=== PATIENT | female | born 1990 | race Caucasian/White ===

== ENCOUNTER → 2016-10-06 | Outpatient (CLI) | payer BC ==
--- NOTE | 2016-10-06 09:21 | REP ---
Obstetric sonography: History: Supervision of for anatomy. Findings: Scanning through the gravid uterus demonstrates a viable single intrauterine gestation in a cephalic lie. motion is observed and heart rate is recorded at 135 beats per minute. An anterior grade 0 placenta is seen without evidence of previa. Amniotic fluid is subjectively normal. Closed cervical length is 5.1 cm. No extrauterine abnormality is observed. No anomaly is seen. The following anatomic structures are identified and felt to be sonographically unremarkable: cranium, choroid plexus, cavum, cerebellum and posterior fossa, face and profile, lungs, four-chamber heart with left and right ventricular outflow tract views, diaphragm, left-sided stomach, abdominal wall cord insertion, three-vessel umbilical cord, kidneys and bladder, spine, upper and lower extremities. Biometry chart: BPD 4.7 cm 20 weeks 1 day Head circumference 17.9 cm 20 weeks 2 days Abdominal circumference 16.2 cm 21 weeks 2 days Femur length 3.3 cm 20 weeks 2 days Humeral length 3.1 cm 20 weeks 2 days Cerebellar diameter 2.1 cm 20 weeks 0 days HC/AC ratio normal 1.1. Cephalic index normal 0.7. Estimated weight 375 grams, 0 pounds 13 ounces, 59th percentile for 20 weeks 3 days. Impression: Viable single intrauterine gestation at 20 weeks 3 days by today's composite sonographic criteria. [email or web address] by today's sonography February 20, 2017. No anomaly is seen. Signed by Bon Alves MD 10/06/2016 02:35 P
== END ==
LOC: M RAD 06:42
DX: Z34.80 Encounter for supervision of other normal pregnancy, unspecified trimester (principal)

== ENCOUNTER → 2016-12-21 | Outpatient (CLI) | payer BC ==
[2016-12-21 17:47] LABS: BASO % 0.3 % (0.0-1.0); EOS % 0.5 % (0.0-3.0); LYMPH # 1.6 K/mm3 (1.5-6.5); LYMPH % 19.3 % (24.0-44.0); MEAN CORPUSCULAR HGB CONC 32.1 g/dl (32.0-36.5); MEAN CORPUSCULAR VOLUME 87.4 fl (80.0-96.0); MONO # 0.4 K/mm3 (0.0-0.8); MONO % 4.4 % (0.0-5.0); NEUTROPHILS % 73.7 % (36.0-66.0); RED CELL DISTRIBUTION WIDTH 13.5 % (11.5-14.5); WHITE BLOOD COUNT 8.1 K/mm3 (4.0-10.0)
[2016-12-22 10:41] LABS: HBsAg Prenatal NEGATIVE (NEGATIVE)
== END ==
LOC: M LAB 15:15
PROVIDERS: ATTEND Nurse Practitioner Adult Health
DX: Z34.81 Encounter for supervision of other normal pregnancy, first trimester (principal)

== ENCOUNTER → 2016-12-21 | Outpatient (CLI) | payer BC | LOC: M LAB 15:12 | PROVIDERS: ATTEND Obstetrics & Gynecology Obstetrics | DX: Z34.82 Encounter for supervision of other normal pregnancy, second trimester (principal) ==

== ENCOUNTER → 2017-09-27 | Outpatient (CLI) | payer OTHER | LOC: M LRY 14:43 | DX: Z53.9 Procedure and treatment not carried out, unspecified reason (principal) ==

== ENCOUNTER 2019-01-21 16:40 | Emergency (ER) | payer OTHER ==
[~2019-01-21] VITALS: Ht 152.4 cm; Wt 55.8 kg
[2019-01-21] MEDS ORDERED: PYRI1TAB5 PO (19:22)
[2019-01-21] MEDS ORDERED: CIPR-249 PO (19:22)
[2019-01-21 19:26] VITALS: BP 109/60
== END 2019-01-21 19:31 | disposition home or self-care (01) ==
LOC: M ED 16:40
DX: N30.00 Acute cystitis without hematuria (principal); Z91.89 Other specified personal risk factors, not elsewhere classified; Z88.2 Allergy status to sulfonamides; Z91.040 Latex allergy status